=== PATIENT | male | born 1975 | race Caucasian/White ===

== ENCOUNTER → 2020-08-13 10:52 | Outpatient (CLI) | payer BC, SELFPAY ==
--- NOTE | ~2020-08-13 | XR_ITS ---
EXAMINATION: XR hip LT min 2V DATE: 08/13/2020 11:18 INDICATION: Left hip pain. Arthritis. TECHNIQUE: 2 views of left hip were obtained. COMPARISON: None. FINDINGS: Bone alignment is normal. No fracture. There is mild left hip osteoarthritis. IMPRESSION: 1. Mild left hip osteoarthritis. Reviewed, dictated and finalized at location A. NDS PERSON
--- NOTE | ~2020-08-13 | XR_ITS ---
XR lumbar spine 2-3V DATE: 08/13/2020 11:18 INDICATION: Low back pain, sciatica TECHNIQUE: Standing AP and lateral and coned lateral lumbosacral views COMPARISON: None FINDINGS: Normal alignment of the lumbar spine. Slight levoscoliosis of the lumbar spine. The lumbar pedicles are intact. No fracture or bone destruction or spondylolisthesis. The included lower thoraci c and lumbar pedicles are intact. Lumbar levels interspaces are relatively preserved. The sacroiliac joints are unremarkable. IMPRESSION: Minimal levoscoliosis Reviewed, dictated and finalized at location A. ET RESEARCH MANAGER IMPRESSION: Minimal levoscoliosis
== END ==
PROVIDERS: PCP Family Medicine; Visit Provider Family Medicine
DX: M19.90 Unspecified osteoarthritis, unspecified site (principal); M41.86 Other forms of scoliosis, lumbar region; M16.12 Unilateral primary osteoarthritis, left hip
CPT/HCPCS: 72100; 73502

== ENCOUNTER → 2020-12-31 08:55 | Outpatient (CLI) | payer BC, SELFPAY ==
--- NOTE | ~2020-12-31 | MR_ITS ---
EXAMINATION: MR lumbar spine wo con DATE: 12/31/2020 09:29 INDICATION: Low back pain. TECHNIQUE: Magnetic resonance imaging (MRI) of the lumbar spine was performed without intravenous con trast. Sequences included sagittal T2-weighted FSE, sagittal T2-weighted FS FSE, sagittal T1-weighted FSE, and axial T2-weighted FSE. COMPARISON: Lumbar spine radiographs 08/13/2020 FINDINGS: Bone alignment is normal. There is mild chronic anterior wedging of T11 and T12 vertebral b odies. Intervertebral disc heights are normal. The distal spinal cord signal intensity is normal. The conus medullaris is at 12. The following disc levels are specifically discussed: L1-L2: The disc does not extend beyond the endplate margin. There is mild bilateral facet joint osteo arthritis. There is no neural foraminal stenosis. There is no central canal stenosis. L2-L3: The disc does not extend beyond the endplate margin. There is mild bilateral facet joint osteo arthritis. There is no neural foraminal stenosis. There is no central canal stenosis. L3-L4: The disc is bulging. There is mild bilateral facet joint osteoarthritis. There is mild bilater al neural foraminal stenosis. There is no central canal stenosis. L4-L5: The disc is bulging. There is moderate bilateral facet joint osteoarthritis. There is mild elly ateral neural foraminal stenosis. There is no central canal stenosis. L5-S1: The disc does not extend beyond the endplate margin. There is mild bilateral facet joint osteo arthritis. There is no neural foraminal stenosis. There is no central canal stenosis. IMPRESSION: 1. Mild lumbar spondylosis. Reviewed, dictated and finalized at location A. IMPRESSION: 1. Mild lumbar spondylosis.
== END ==
PROVIDERS: Visit Provider Orthopaedic Surgery
DX: M47.817 Spondylosis without myelopathy or radiculopathy, lumbosacral region (principal)
CPT/HCPCS: 72148

== ENCOUNTER 2022-01-04 01:07 | Day surgery (SDC) | payer BC, SELFPAY ==
[2021-12-16 14:33] VITALS: BMI 42.0
[2022-01-04 10:17] VITALS: BP 129/81; PULSE 76; RESP 16; TEMP 36.8; O2SAT 98; BMI 43.2
[2022-01-04] MEDS: LACTATED RINGERS 1,000 ML 150 ML IV CONT (10:30)
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
[2022-01-04 11:18] VITALS: BP 123/69; PULSE 78; RESP 27; O2SAT 100
[2022-01-04 11:28] VITALS: BP 131/78; PULSE 73; RESP 21; O2SAT 98
[2022-01-04 11:38] VITALS: BP 125/83; PULSE 70; RESP 17; O2SAT 98
== END 2022-01-04 11:45 | disposition home or self-care (01) ==
PROVIDERS: Visit Provider Internal Medicine Gastroenterology
PROC: 0DJD8ZZ Inspection of Lower Intestinal Tract, Via Natural or Artificial Opening Endoscopic (ICD-10-PCS; CPT 45378; principal; 2022-01-04 11:15)
DX: Z12.11 Encounter for screening for malignant neoplasm of colon (principal); D12.0 Benign neoplasm of cecum; K63.5 Polyp of colon; K57.30 Diverticulosis of large intestine without perforation or abscess without bleeding; K64.8 Other hemorrhoids; K58.0 Irritable bowel syndrome with diarrhea; F17.220 Nicotine dependence, chewing tobacco, uncomplicated; F32.A Depression, unspecified; E66.01 Morbid (severe) obesity due to excess calories; Z68.41 Body mass index [BMI] 40.0-44.9, adult
CPT/HCPCS: 45385; 45380; 88305; J2704; J7120

== ENCOUNTER 2022-03-08 00:41 | Day surgery (SDC) | payer BC, SELFPAY ==
[2022-02-25 15:12] VITALS: BMI 42.9
[2022-03-08 12:40] VITALS: BMI 44.4
[2022-03-08 12:51] VITALS: BP 159/90; PULSE 73; RESP 18; TEMP 36.6; O2SAT 99
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
--- NOTE | 2022-03-08 12:55 | W.PM.PROC2 ---
Procedure Note - Detailed Date of Procedure 03/08/22 Pre-op Diagnosis hemorrhoids Post-op Diagnosis Same Procedure Performed IRC of internal hemorrhoids Surgeon Elver Brown MD Indications rectal pressure Description of Procedure small internal hemorrhoids located at 3 o'clock, no bleeding, no fissure. I did not find any perianal lesions otherwise. Then I introduced anoscope and advanced IRC probe, hemorrhoid treated 1.5secons x5, no complications
[2022-03-08 13:15] VITALS: BP 151/96; PULSE 80; RESP 18; O2SAT 98
== END 2022-03-08 13:16 | disposition home or self-care (01) ==
PROVIDERS: Visit Provider Internal Medicine Gastroenterology
PROC: (CPT 46930; principal; 2022-03-08 13:00)
DX: K64.8 Other hemorrhoids (principal); R14.0 Abdominal distension (gaseous); F32.A Depression, unspecified; K58.0 Irritable bowel syndrome with diarrhea; F17.210 Nicotine dependence, cigarettes, uncomplicated; R19.8 Other specified symptoms and signs involving the digestive system and abdomen
CPT/HCPCS: 46930